=== PATIENT | male | born 1960 | race Caucasian/White ===

== ENCOUNTER → 2020-05-24 | Outpatient (CLI) | payer BC ==
[~2020-05-24] MED LIST: BP MED; CLOP75 PO; FLUT.05NI; HYDACE5 PO; UNKNOWN BP MED PO; WARF10 PO; WARF7.5 PO
[2020-05-24 14:19] LABS: International Normalized Ratio 1.37; Prothrombin Time Results 14.4 Sec (9.7-11.5)
[2020-05-24 14:20] LABS: Alanine Aminotransfer (ALT/SGP 39 U/L (12-78); Albumin, Blood 3.4 g/dL (3.4-5.0); Albumin/Globulin Ratio 0.9 (0.8-1.8); Alk Phos 89 U/L (50-136); Anion Gap 6 mmol/L (6-16); Aspartate Aminotrans (AST/SGOT 29 U/L (12-37); Bilirubin, Total 0.6 mg/dL (0.1-1.0); Blood Urea Nitrogen 15 mg/dL (8-24); Bun/Creatinine Ratio 16.7 (12.0-20.0); CO2, Blood 25 mmol/L (21-32); Calcium, Blood 8.7 mg/dL (8.5-10.1); Chloride, Blood 109 mmol/L (98-108); Globulin, Blood 3.6 g/dL (2.2-4.0); Glomerular Filtration Rate >60 (60-); Glucose, Blood 91 mg/dL (70-99); Potassium, Blood 4.2 mmol/L (3.5-5.5); Sodium, Blood 140 mmol/L (136-145)
== END | disposition home or self-care (01) ==
LOC: LAB SHORT 13:58 → LAB 13:58
PROVIDERS: Hospitalist
DX: Z12.5 Encounter for screening for malignant neoplasm of prostate (principal); D68.2 Hereditary deficiency of other clotting factors; I10 Essential (primary) hypertension
CPT/HCPCS: 80053; 85610; G0103

== ENCOUNTER → 2022-07-10 | Outpatient (CLI) | payer BC ==
[2022-07-10 15:45] LABS: International Normalized Ratio 2.89; Prothrombin Time Results 28.3 Sec (9.7-11.5)
== END | disposition home or self-care (01) ==
LOC: LAB 10:15 → LAB SHORT 10:15
PROVIDERS: Hospitalist
DX: D68.2 Hereditary deficiency of other clotting factors (principal)
CPT/HCPCS: 85610